=== PATIENT | male | born 1970 | race Caucasian/White ===

== ENCOUNTER 2019-05-13 23:49 | Emergency (ER) | payer MEDICARE, OTHER ==
[~2019-05-13] VITALS: Ht 180.3 cm; Wt 81.7 kg
[~2019-05-13 23:49] MED LIST: AMIT25 PO; Bactrim 400-801 EACH PO; Bactrim Ds Tab1 EACH PO; CEPH500 PO; Cleocin HCl150 MG PO; GABA100 PO; Keflex500 MG PO; METO50ER PO; PRAZ1 PO; QUET100 PO; Zofran Odt4 MG SL
== END 2019-05-14 05:25 | disposition home or self-care (01) ==
LOC: ER 23:49
DX: S02.2XXA Fracture of nasal bones, initial encounter for closed fracture (principal); Y04.8XXA Assault by other bodily force, initial encounter; F17.210 Nicotine dependence, cigarettes, uncomplicated
CPT/HCPCS: 70450; 70486; 99284-25; A9270

== ENCOUNTER 2019-05-21 09:02 | Day surgery (SDC) | payer MEDICARE ==
[~2019-05-21] VITALS: Ht 180.3 cm; Wt 83.9 kg
[2019-05-21] MEDS ORDERED: CEPH500 PO (09:54)
--- NOTE | 2019-05-21 11:32 | NUR ---
05/21/19 1132 NIYA VILLALBA VSS ON ROOM AIR. PATIENT DENIES PAIN/NAUSEA.
== END 2019-05-21 12:35 | disposition home or self-care (01) ==
LOC: ORSCSDS 09:02
PROVIDERS: Otolaryngology
PROC: 0NSBXZZ Reposition Nasal Bone, External Approach (ICD-10-PCS; principal; 2019-05-21 12:00)
DX: S02.2XXA Fracture of nasal bones, initial encounter for closed fracture (principal); Y04.2XXA Assault by strike against or bumped into by another person, initial encounter; F17.210 Nicotine dependence, cigarettes, uncomplicated; B19.20 Unspecified viral hepatitis C without hepatic coma
CPT/HCPCS: J1100; J1885; J2405; J2704; J3010; J7120

== ENCOUNTER 2019-08-02 18:49 | Emergency (ER) | payer MEDICARE ==
[2019-08-02] MEDS ORDERED: Narcan 0.40.4 MG/ML IM (20:54)
== END 2019-08-02 23:28 | disposition home or self-care (01) ==
DX: T40.1X1A Poisoning by heroin, accidental (unintentional), initial encounter (principal); F17.200 Nicotine dependence, unspecified, uncomplicated

== ENCOUNTER 2019-12-19 02:44 | Emergency (ER) | payer MEDICARE ==
[~2019-12-19] VITALS: Ht 180.3 cm; Wt 86.2 kg
[~2019-12-19 02:44] MED LIST changes: +NARCAN4 M1; +Narcan 0.40.4 MG/ML IM
== END 2019-12-19 05:37 | disposition home or self-care (01) ==
LOC: ER 02:44
DX: T40.1X1A Poisoning by heroin, accidental (unintentional), initial encounter (principal); F15.90 Other stimulant use, unspecified, uncomplicated; R40.4 Transient alteration of awareness; F17.210 Nicotine dependence, cigarettes, uncomplicated
CPT/HCPCS: 99284

== ENCOUNTER 2021-05-29 11:35 | Day surgery (SDC) | payer MEDICARE, OTHER ==
[~2021-05-29] VITALS: Ht 162.6 cm; Wt 93.2 kg
[2021-05-29] MEDS ORDERED: BUPR150ER PO (12:13)
[2021-05-29] MEDS ORDERED: QUET300 PO (12:14)
[2021-05-29] MEDS ORDERED: OMEP20ER PO (12:14)
[2021-05-29] MEDS ORDERED: METO50ER PO (12:14)
[2021-05-29] MEDS ORDERED: TAMS.4ER PO (12:15)
[2021-05-29] MEDS ORDERED: Pulmicort Fle180 MCG INH (12:15)
[2021-05-29] MEDS ORDERED: ALBU8HFA2 INH (12:15)
--- NOTE | 2021-05-29 14:39 | NUR ---
05/29/21 1439 DAISY ESPINOZA CALLED PT FRIEND LIA TO PICK HIM UP, NSC,RN LEFT MESSAGE. PT TAKEN TO STEPDOWN, SITTING IN RECLINER. DRINKING CRANBERRY JUICE. AMB W/O DIFFICULTY. PT CALLED FRIEND ON HIS CELL PHONE FOR FRIEND TO PICK HIM UP. DERICK AND NEERU AWARE PT IN STEPDOWN.
== END 2021-05-29 14:25 | disposition home or self-care (01) ==
LOC: ORSCSDS 11:35
PROVIDERS: Internal Medicine Gastroenterology
PROC: 0DB58ZX Excision of Esophagus, Via Natural or Artificial Opening Endoscopic, Diagnostic (ICD-10-PCS; principal; 2021-05-29 13:00)
PROC: 0DB68ZX Excision of Stomach, Via Natural or Artificial Opening Endoscopic, Diagnostic (ICD-10-PCS; principal; 2021-05-29 13:00)
PROC: 0DJD8ZZ Inspection of Lower Intestinal Tract, Via Natural or Artificial Opening Endoscopic (ICD-10-PCS; 2021-05-29 13:00)
DX: K21.9 Gastro-esophageal reflux disease without esophagitis (principal); Z12.11 Encounter for screening for malignant neoplasm of colon; B18.2 Chronic viral hepatitis C; K29.60 Other gastritis without bleeding; K44.9 Diaphragmatic hernia without obstruction or gangrene; I10 Essential (primary) hypertension; R00.0 Tachycardia, unspecified; Z87.891 Personal history of nicotine dependence; Z79.899 Other long term (current) drug therapy
CPT/HCPCS: 43239; G0121; 88305; 88342; J0330; J0461; J2405; J2704; J7120

== ENCOUNTER 2021-06-12 08:09 | Day surgery (SDC) | payer MEDICARE, OTHER ==
[~2021-06-12] VITALS: Ht 180.3 cm; Wt 93.8 kg
[~2021-06-12 08:09] MED LIST changes: +ALBU8HFA2 INH; +BUPR150ER PO; +OMEP20ER PO; +Pulmicort Fle180 MCG; +QUET300 PO; +TAMS.4ER PO
== END 2021-06-12 11:59 | disposition home or self-care (01) ==
LOC: ORSCSDS 08:09
PROVIDERS: Otolaryngology
PROC: 09SM0ZZ Reposition Nasal Septum, Open Approach (ICD-10-PCS; principal; 2021-06-12 09:55)
DX: J34.2 Deviated nasal septum (principal); J34.3 Hypertrophy of nasal turbinates; I10 Essential (primary) hypertension; J44.9 Chronic obstructive pulmonary disease, unspecified; F17.210 Nicotine dependence, cigarettes, uncomplicated; K21.9 Gastro-esophageal reflux disease without esophagitis; B19.20 Unspecified viral hepatitis C without hepatic coma; Z79.899 Other long term (current) drug therapy
CPT/HCPCS: J0171; J1100; J2250; J2405; J2704; J3010; J7120

== ENCOUNTER 2021-09-24 12:11 | Inpatient (IN) | payer MEDICARE, OTHER ==
[~2021-09-24] VITALS: Ht 180.3 cm; Wt 96.4 kg
[~2021-09-24 12:11] MED LIST changes: -Pulmicort Fle180 MCG; +Pulmicort Fle180 MCG INH
[2021-09-24 13:14] LABS: Albumin, Blood 3.5 g/dL (3.4-5.0); Albumin/Globulin Ratio 0.7 (0.8-1.8); Bilirubin, Total 1.1 mg/dL (0.1-1.0); Bun/Creatinine Ratio 35.6 (12.0-20.0); Calcium, Blood 9.8 mg/dL (8.5-10.1); Creatinine, Blood 1.35 mg/dL (0.60-1.20); Globulin, Blood 5.2 g/dL (2.2-4.0); Potassium, Blood 4.7 mmol/L (3.5-5.5); Total Protein, Blood 8.7 g/dL (6.4-8.2)
[2021-09-24 15:00] LABS: BASOPHILS ABSOLUTE AUTO 0.02 K/mm3 (0.00-0.23); BASOPHILS PERCENT AUTO 0 % (0-2); EOSINOPHILS ABSOLUTE AUTO 0.08 K/mm3 (0.00-0.68); EOSINOPHILS PERCENT AUTO 1 % (0-6); Hematocrit 43.5 % (37.0-53.0); Hemoglobin 15.8 g/dL (13.5-17.5); IMMATURE GRAN ABSOLUTE AUTO 0.06 K/mm3 (0.00-0.10); IMMATURE GRAN PERCENT AUTO 1 % (0-1); LYMPHOCYTES ABSOLUTE AUTO 0.97 K/mm3 (0.84-5.20); LYMPHOCYTES PERCENT AUTO 9 % (21-46); MONOCYTES ABSOLUTE AUTO 1.24 K/mm3 (0.16-1.47); MONOCYTES PERCENT AUTO 12 % (4-13); Mean Corpuscular HGB 30.9 pg (26.0-34.0); Mean Corpuscular HGB Conc 36.3 g/dL (31.5-36.5); Mean Corpuscular Volume 85 fL (80-100); Mean Platelet Volume 9.8 fL (9.1-12.4); NEUTROPHILS ABSOLUTE AUTO 8.39 K/mm3 (1.96-9.15); NEUTROPHILS PERCENT AUTO 78 % (41-73); Platelet Count 253 K/mm3 (150-400); RDW Coefficient Variation 12.8 % (11.7-14.2); RDW Standard Deviation 39.9 fL (35.1-46.3); Red Blood Cell Count 5.12 M/mm3 (4.30-5.90); White Blood Cell Count 10.76 K/mm3 (4.00-11.30)
[2021-09-24] MEDS ORDERED: Lopressor 50 mg50 MG PO (15:11)
[2021-09-24] MEDS ORDERED: QUET200 PO (15:12)
[2021-09-24] MEDS ORDERED: VENL75ER PO (15:13)
[2021-09-24 16:45] LABS: Influenza A, PCR NEGATIVE (NEGATIVE); Influenza B, PCR NEGATIVE (NEGATIVE); Resp Syncytial Virus, PCR NEGATIVE (NEGATIVE); SARS-Cov-2 (COVID-19) PCR, MMC NEGATIVE (NEGATIVE)
--- NOTE | 2021-09-24 20:42 | NUR ---
PT ARRIVAL PT ARRIVED TO THE FLOOR AT APPROX 2030, A/O X4 AND ABLE TO TRANSFER SELF FROM GURNY TO BED. PAIN RATED 3/10 AT THIS TIME. NO N/V REPORTED, BOWEL TONES ACTIVE. PT ORIENTED TO CALL LIGHT AND ROOM. WILL CONTINUE TO MONITOR.
[2021-09-24] MEDS ORDERED: TAMSULOSIN HCL0.4 M1 PO (21:49)
[2021-09-24] MEDS ORDERED: PRILOSEC OTC20 MG PO (21:50)
[2021-09-24] MEDS ORDERED: BUPROPION XL150 M1 PO (21:51)
[2021-09-24] MEDS ORDERED: [UNRECOGNIZED DRUG - CODE] PO (21:52)
[2021-09-24] MEDS ORDERED: VENLAFAXINE HC225 MG PO (21:53)
[2021-09-24] MEDS ORDERED: METOPROLOL TART50 M9 PO (21:55)
[2021-09-24] MEDS ORDERED: Pulmicort Flex90 MCG INH (21:55)
[2021-09-24] MEDS ORDERED: Ventolin/Prove6.7 GM INH (21:56)
--- NOTE | 2021-09-24 22:29 | NUR ---
CALL PLACED TO HOSPITALIST AT APPROX 2215 ABOUT PT BP AND HR, WELL PT REPORT OF NEEDING HIS DAILY SEROQUEL. AT THIS TIME MD STATED TO LEAVE HR AND BP ALONE AND TO ORDER 2.5MG HALDOL IV IN PLACE OF SEROQUEL AND TO VERIFY SEROQUEL ORDER WITH PT'S PHARMACY TOMORROW WHEN THEY ARE OPEN. WILL CONTINUE TO MONITOR.
[2021-09-24 23:54] LABS: U Amphetamine Screen Not Detected; U Barbituate Screen Not Detected; U Benzodiazapine Screen Not Detected; U Buprenorphine Screen Not Detected; U Cannabinoids Screen Not Detected; U Cocaine Screen Not Detected; U Methadone Screen Not Detected; U Methamphetamine Screen Not Detected; U Opiates Screen DETECTED; U Oxycodone Screen Not Detected; U Phencyclidine Screen Not Detected; U Propoxyphene Screen Not Detected
[2021-09-25 05:11] LABS: BASOPHILS ABSOLUTE AUTO 0.02 K/mm3 (0.00-0.23); BASOPHILS PERCENT AUTO 0 % (0-2); EOSINOPHILS ABSOLUTE AUTO 0.13 K/mm3 (0.00-0.68); EOSINOPHILS PERCENT AUTO 1 % (0-6); Hemoglobin 14.5 g/dL (13.5-17.5); IMMATURE GRAN ABSOLUTE AUTO 0.09 K/mm3 (0.00-0.10); IMMATURE GRAN PERCENT AUTO 1 % (0-1); LYMPHOCYTES ABSOLUTE AUTO 1.21 K/mm3 (0.84-5.20); LYMPHOCYTES PERCENT AUTO 12 % (21-46); MONOCYTES ABSOLUTE AUTO 1.32 K/mm3 (0.16-1.47); MONOCYTES PERCENT AUTO 13 % (4-13); Mean Corpuscular HGB 30.8 pg (26.0-34.0); Mean Corpuscular HGB Conc 35.4 g/dL (31.5-36.5); Mean Corpuscular Volume 87 fL (80-100); Mean Platelet Volume 9.3 fL (9.1-12.4); NEUTROPHILS ABSOLUTE AUTO 7.16 K/mm3 (1.96-9.15); NEUTROPHILS PERCENT AUTO 72 % (41-73); Platelet Count 250 K/mm3 (150-400); RDW Coefficient Variation 12.9 % (11.7-14.2); RDW Standard Deviation 41.1 fL (35.1-46.3); Red Blood Cell Count 4.71 M/mm3 (4.30-5.90); White Blood Cell Count 9.93 K/mm3 (4.00-11.30)
--- NOTE | 2021-09-25 05:11 | NUR ---
SHIFT SUMMARY A/O X4- PLEASANT AND COOPERATIVE W/ CARE, IND IN ROOM. NO N/V REPORTED, PAIN TREATED W/ IV PAIN MEDICATION. VOIDING AND PASSED SMALL AMOUNT OF LIQUID STOOL X1 THIS SHIFT. NPO AT THIS TIME. VITAL SIGNS TRENDING IN THE RIGHT DIRECTION, PT REPORTS HTN AND TACHYCARDIA AT BASELINE. WILL CONTINUE TO MONITOR AND REPORT TO ONCOMING RN.
[2021-09-25 05:24] LABS: Prothrombin Time Results 10.5 Sec (9.7-11.5)
[2021-09-25 05:38] LABS: Albumin/Globulin Ratio 0.7 (0.8-1.8); Bilirubin, Total 1.3 mg/dL (0.1-1.0); Bun/Creatinine Ratio 31.2 (12.0-20.0); Calcium, Blood 8.9 mg/dL (8.5-10.1); Globulin, Blood 4.6 g/dL (2.2-4.0); Magnesium, Blood 2.3 mg/dL (1.6-2.4); Potassium, Blood 3.9 mmol/L (3.5-5.5); Total Protein, Blood 7.6 g/dL (6.4-8.2)
--- NOTE | 2021-09-25 12:37 | NUR ---
ASSUMED CARE OF PATIENT. PATIENT CURRENTLY RESTING IN SHELLY, DENIES ABDOMINAL PAIN, DENIES N/V. CALL LIGHT IN REACH.
--- NOTE | 2021-09-25 12:39 | NUR ---
VERIFIED PATIENTS HOME DOSE OF SEROQUEL AND UPDATED MED REC. [facility] STATES PATIENTS PRESCRIPTION IS FOR 400MG AT BEDTIME.
--- NOTE | 2021-09-25 17:05 | NUR ---
SHIFT SUMMARY NO ACUTE CHANGES SINCE ASSUMPTION OF CARE. PATIENT INDEPENDENT IN ROOM, AMBULATED HALLWAYS. 1 SMALL BM FOR THIS RN, LOOSE, NO OBJECTS PRESENT. NPO W/ ICE CHIPS. PAIN MANAGED PER EMAR, DENIES N/V. CALLS APPROPRIATELY, WILL REPORT TO ONCOMING RN.
[2021-09-26 05:00] LABS: BASOPHILS ABSOLUTE AUTO 0.03 K/mm3 (0.00-0.23); BASOPHILS PERCENT AUTO 0 % (0-2); EOSINOPHILS ABSOLUTE AUTO 0.15 K/mm3 (0.00-0.68); EOSINOPHILS PERCENT AUTO 2 % (0-6); Hematocrit 38.1 % (37.0-53.0); IMMATURE GRAN ABSOLUTE AUTO 0.16 K/mm3 (0.00-0.10); IMMATURE GRAN PERCENT AUTO 2 % (0-1); LYMPHOCYTES ABSOLUTE AUTO 1.31 K/mm3 (0.84-5.20); LYMPHOCYTES PERCENT AUTO 15 % (21-46); MONOCYTES ABSOLUTE AUTO 1.33 K/mm3 (0.16-1.47); MONOCYTES PERCENT AUTO 15 % (4-13); Mean Corpuscular HGB 30.7 pg (26.0-34.0); Mean Corpuscular HGB Conc 34.1 g/dL (31.5-36.5); Mean Corpuscular Volume 90 fL (80-100); Mean Platelet Volume 9.4 fL (9.1-12.4); NEUTROPHILS ABSOLUTE AUTO 5.84 K/mm3 (1.96-9.15); NEUTROPHILS PERCENT AUTO 66 % (41-73); Platelet Count 237 K/mm3 (150-400); RDW Coefficient Variation 12.9 % (11.7-14.2); RDW Standard Deviation 42.1 fL (35.1-46.3); Red Blood Cell Count 4.24 M/mm3 (4.30-5.90); White Blood Cell Count 8.82 K/mm3 (4.00-11.30)
[2021-09-26 05:19] LABS: Bun/Creatinine Ratio 25.4 (12.0-20.0); Calcium, Blood 8.7 mg/dL (8.5-10.1); Creatinine, Blood 0.83 mg/dL (0.60-1.20); Potassium, Blood 3.9 mmol/L (3.5-5.5)
--- NOTE | 2021-09-26 06:08 | NUR ---
PT VSS T/O NIGHT. ABD REMAINS DISTENDED, BT ACTIVE, PT HAD 2 LIQ BM. STOOL BROWN, PT PASSED WHAT APPEARED TO BE A WHOLE BLUEBERRY. NO OTHER SOLID SUBSTANCES/ITEMS NOTED. PT DENIED PAIN W/VOID, DENIED N/V. PT VOIDING URINE W/O DIFFICULTY. PAIN MGD PER EMAR W/REP RELIEF. PT NPO PER ORDERS. IVF AND ABX CONT.
--- NOTE | 2021-09-26 19:33 | NUR ---
SHIFT SUMMARY PT HAS CONTINUED TO HAVE FREQUENT LIQUID BM'S T/O SHIFT. TONIGHT PT HAD WHAT APPEARED TO BE TWO HARD PILLS SLIGHTLY SMALLER THAN A DIME PRESENT IN BM. PT DENIES ANY INCREASE PAIN. NO N/V. PT AMBULATING HALLWAYS FREQUENTLY.
--- NOTE | 2021-09-27 04:32 | NUR ---
SHIFT SUMMARY NO ACUTE CHANGES THIS SHIFT. 50MCG IV FENTANYL FOR ABD PAIN PRN. PT PASSING FLATUS AND HAVING LIQUID STOOL. CONT TO STRAIN STOOL--NOTHING NOTED THIS SHIFT. PT INDEP WITH AMBULATION. PT NPO AND IVF INFUSING PER ORDERS. CALL LIGHT WITHIN REACH.
[2021-09-27 05:51] LABS: Bun/Creatinine Ratio 25.7 (12.0-20.0); Calcium, Blood 8.6 mg/dL (8.5-10.1); Creatinine, Blood 0.74 mg/dL (0.60-1.20); Potassium, Blood 3.7 mmol/L (3.5-5.5)
--- NOTE | 2021-09-27 16:12 | NUR ---
SUMMARY: PT ADMITTED FOR SOB. NO ACUTE CHANGE TODAY. VSS, A/O. PT INDEPENDENT IN ROOM AND TAKES FREQUENT WALKS IN HALLS. ABD IS MOD DISTENDED. PT REPORTS PASSING GAS AND IS HAVING LIQUID BM'S. DENIES N/V. MEDICATED ABOUT Q3 WITH 50MCG OF FENTANYAL. NO SAFETY CONCERNS, WILL REPORT TO MERYL ORTIZ.
[2021-09-28 06:10] LABS: Hematocrit 36.9 % (37.0-53.0); Hemoglobin 12.8 g/dL (13.5-17.5); Mean Corpuscular HGB 30.5 pg (26.0-34.0); Mean Corpuscular HGB Conc 34.7 g/dL (31.5-36.5); Mean Corpuscular Volume 88 fL (80-100); Mean Platelet Volume 9.5 fL (9.1-12.4); Platelet Count 320 K/mm3 (150-400); RDW Coefficient Variation 12.4 % (11.7-14.2); Red Blood Cell Count 4.19 M/mm3 (4.30-5.90); White Blood Cell Count 8.49 K/mm3 (4.00-11.30)
[2021-09-28 06:30] LABS: Albumin, Blood 2.7 g/dL (3.4-5.0); Albumin/Globulin Ratio 0.7 (0.8-1.8); Bilirubin, Total 0.7 mg/dL (0.1-1.0); Bun/Creatinine Ratio 22.5 (12.0-20.0); Calcium, Blood 8.5 mg/dL (8.5-10.1); Creatinine, Blood 0.67 mg/dL (0.60-1.20); Globulin, Blood 4.1 g/dL (2.2-4.0); Potassium, Blood 3.4 mmol/L (3.5-5.5); Total Protein, Blood 6.8 g/dL (6.4-8.2)
--- NOTE | 2021-09-28 08:11 | NUR ---
SUMMARY PT CONTINUES TO REQUIRE FENTANYL FOR PAIN CONTROL. SLEEPS BETWEEN DOSES. 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 ADMIT HAD 400 MG -I CHANGED ADMIT AND DAY RN AGREES TO FOLLOW UP WITH REGARDING THIS. STOOL CONTINUES LIQUID-DID NOT STRAIN ANYTHING WITH APPEARANCE OF FOREIGN OBJECT TONIGHT. SAMPLES FROM THIS SHIFT AND DAY SHIFT IN SAMPLE CUPS IN ROOM.FLATUS+
[2021-09-28 08:13] LABS: BASOPHILS PERCENT MAN 0 % (0-2); EOSINOPHILS PERCENT MAN 0 % (0-6); LYMPHOCYTES % ATYPICAL MANUAL 1 % (0-0); LYMPHOCYTES ABSOLUTE MAN 2.97 K/mm3 (0.84-5.20); LYMPHOCYTES PERCENT MAN 34 % (21-46); MONOCYTES PERCENT MAN 6 % (4-13); MYELOCYTE ABSOLUTE MAN 0.16 K/mm3 (0.00-0.00); MYELOCYTE PERCENT MAN 2 % (0-0); NEUTROPHILS ABSOLUTE MAN 4.83 K/mm3 (1.96-9.15); SEG NEUTROPHILS PERCENT MAN 57 % (41-73); TOTAL CELLS COUNTED 100
--- NOTE | 2021-09-28 17:07 | NUR ---
SUMMARY NO ACUTE CHANGES T/O SHIFT. PT ADVANCED TO CLEAR LIQUID DIET; TOLERATING WELL. REPORTS CONTINUING TO HAVE LOOSE BMS. INDEPENDENT. AMBULATED OUT OF UNIT THIS SHIFT. CALL LIGHT KEPT WITHIN REACH.
--- NOTE | 2021-09-28 23:46 | NUR ---
1043 ASSUMED CARE. REPORT RECIEVED FROM CHUCHO ORTIZ
[2021-09-29 04:06] LABS: Hematocrit 36.4 % (37.0-53.0); Hemoglobin 12.9 g/dL (13.5-17.5)
[2021-09-29 04:27] LABS: Albumin, Blood 2.7 g/dL (3.4-5.0); Albumin/Globulin Ratio 0.7 (0.8-1.8); Bilirubin, Total 0.6 mg/dL (0.1-1.0); Bun/Creatinine Ratio 12.9 (12.0-20.0); Calcium, Blood 8.3 mg/dL (8.5-10.1); Creatinine, Blood 0.7 mg/dL (0.60-1.20); Globulin, Blood 3.8 g/dL (2.2-4.0); Potassium, Blood 3.4 mmol/L (3.5-5.5); Total Protein, Blood 6.5 g/dL (6.4-8.2)
--- NOTE | 2021-09-29 04:40 | NUR ---
SHIFT SUMMARY PT REPORTS MINIMAL TO NO PAIN AT REST BUT REPORTS 4/10 PAIN LEVEL WITH MOVEMENT/WALKING. PAIN MANAGED WITH TORADOL AND NORCO. FULL LIQ DIET, TOLERATING PO INTAKE DENIES NAUSEA AND VOMITING. INDEPENDENT IN ROOM. WALKS IN THE BATHROOM TO VOID. VOIDING WITHOUT DIFFICULTY. NO ACUTE CHANGES OVERNIGHT. WILL CONTINUE TO MONITOR AND WILL PROVIDE REPORT TO ONCOMING NURSE.
[2021-09-29] MEDS ORDERED: AMOCLA875 PO (10:56)
[2021-09-29] MEDS ORDERED: VISBIOME 112.51 EACH PO (10:57)
[2021-09-29] MEDS ORDERED: HYDR1TAB94 PO (11:05)
--- NOTE | 2021-09-29 11:41 | NUR ---
DISCHARGE SUMMARY PATIENT ALERT AND ORIENTED THROUGHOUT SHIFT. TOLERATING FULL LIQUID DIET AND FLUIDS. VOIDING WELL AND PASSING GAS AND SMALL BMS. ABD DISTENDED AND TIGHT ALTHOUGH PATIENT AND DR BURGOS BOTH STATE IT IS IMPROVED. DISCHARGE ORDERS OBTAINED. DISCHARGE EDUCATION GIVEN ON DIET, PAIN CONTROL, AND FOLLOW UP APPTS. IV DC'D WNL. PATIENT LEFT UNIT VIA WHEELCHAIR AT 1140 FOR HOME.
== END 2021-09-29 11:33 | disposition home or self-care (01) | DRG 389 ==
LOC: ER 12:11 → SURS 18:57
PROVIDERS: Emergency Medicine; Family Medicine; Internal Medicine; Nurse Practitioner Acute Care; Physician Assistant; ADMIT Hospitalist
DX: K56.609 Unspecified intestinal obstruction, unspecified as to partial versus complete obstruction (principal); L02.211 Cutaneous abscess of abdominal wall; N40.0 Benign prostatic hyperplasia without lower urinary tract symptoms; I10 Essential (primary) hypertension; J45.909 Unspecified asthma, uncomplicated; B19.20 Unspecified viral hepatitis C without hepatic coma; K21.9 Gastro-esophageal reflux disease without esophagitis; F41.9 Anxiety disorder, unspecified; K22.70 Barrett's esophagus without dysplasia; Z20.822 Contact with and (suspected) exposure to COVID-19; Z90.49 Acquired absence of other specified parts of digestive tract; Z90.89 Acquired absence of other organs; Z79.899 Other long term (current) drug therapy
CPT/HCPCS: 0241U; 36415; 74019; 74176; 80048; 80053; 83605; 83690; 83735; 85014; 85018; 85025; 85610; 86140; 87040; 93005; 93010; 94640; 94664; 94760; 94762; 96365; 96366; 96375; 96376; 99285-25; A9270; C9113; J0295; J1170; J1630; J2405; J3010; J7030; J7120

== ENCOUNTER 2021-12-17 11:52 | Inpatient (IN) | payer MEDICARE, OTHER ==
[~2021-12-17] VITALS: Ht 180.3 cm; Wt 98.0 kg
[~2021-12-17 11:52] MED LIST changes: +AMOCLA875 PO; +BUPROPION XL150 M1 PO; +HYDR1TAB94 PO; +Lopressor 50 mg50 MG PO; +METOPROLOL TART50 M9 PO; +PRILOSEC OTC20 MG PO; +Pulmicort Flex90 MCG INH; +QUET200 PO; +TAMSULOSIN HCL0.4 M1 PO; +VENL75ER PO; +VENLAFAXINE HC225 MG PO; +VISBIOME 112.51 EACH PO; +Ventolin/Prove6.7 GM INH; +[UNRECOGNIZED DRUG - CODE] PO
[2021-12-17 12:49] LABS: Source, Urine Clean Catch
[2021-12-17 12:52] LABS: BASOPHILS ABSOLUTE AUTO 0.01 K/mm3 (0.00-0.23); BASOPHILS PERCENT AUTO 0 % (0-2); EOSINOPHILS ABSOLUTE AUTO 0.01 K/mm3 (0.00-0.68); EOSINOPHILS PERCENT AUTO 0 % (0-6); Hematocrit 45.1 % (37.0-53.0); Hemoglobin 16.1 g/dL (13.5-17.5); IMMATURE GRAN ABSOLUTE AUTO 0.03 K/mm3 (0.00-0.10); IMMATURE GRAN PERCENT AUTO 0 % (0-1); LYMPHOCYTES PERCENT AUTO 7 % (21-46); MONOCYTES ABSOLUTE AUTO 0.89 K/mm3 (0.16-1.47); MONOCYTES PERCENT AUTO 8 % (4-13); Mean Corpuscular HGB 30.9 pg (26.0-34.0); Mean Corpuscular HGB Conc 35.7 g/dL (31.5-36.5); Mean Corpuscular Volume 87 fL (80-100); Mean Platelet Volume 10.6 fL (9.1-12.4); NEUTROPHILS ABSOLUTE AUTO 9.39 K/mm3 (1.96-9.15); NEUTROPHILS PERCENT AUTO 84 % (41-73); Platelet Count 151 K/mm3 (150-400); RDW Coefficient Variation 12.8 % (11.7-14.2); RDW Standard Deviation 39.9 fL (35.1-46.3); Red Blood Cell Count 5.21 M/mm3 (4.30-5.90); White Blood Cell Count 11.13 K/mm3 (4.00-11.30)
[2021-12-17 13:00] LABS: Appearance, Urine Clear (Clear); Bilirubin, Urine Neg (Neg); Blood, Urine Neg (Neg); Color, Urine Yellow (P-Yellow); Glucose Qualitative, Urine Neg (Neg); Ketones, Urine Neg (Neg); Leukocyte Esterase, Urine Neg (Neg); Nitrite, Urine Neg (Neg); Protein, Urine Neg (Neg); Urobilinogen, Urine NORM (Normal)
[2021-12-17 13:12] LABS: Albumin, Blood 4.2 g/dL (3.4-5.0); Albumin/Globulin Ratio 1.1 (0.8-1.8); Bilirubin, Total 1.1 mg/dL (0.1-1.0); Bun/Creatinine Ratio 12.3 (12.0-20.0); Calcium, Blood 8.7 mg/dL (8.5-10.1); Creatinine, Blood 0.89 mg/dL (0.60-1.20); Globulin, Blood 3.9 g/dL (2.2-4.0); Potassium, Blood 4.1 mmol/L (3.5-5.5); Total Protein, Blood 8.1 g/dL (6.4-8.2)
[2021-12-17 16:07] LABS: Influenza A, PCR NEGATIVE (NEGATIVE); Influenza B, PCR NEGATIVE (NEGATIVE); Resp Syncytial Virus, PCR NEGATIVE (NEGATIVE); SARS-Cov-2 (COVID-19) PCR, MMC NEGATIVE (NEGATIVE)
[2021-12-17] MEDS ORDERED: MONT10T PO (16:37)
[2021-12-17] MEDS ORDERED: Pulmicort Flex90 MCG INH (16:38)
[2021-12-17] MEDS ORDERED: GABA300 PO (16:39)
--- NOTE | 2021-12-17 18:31 | NUR ---
SUMMARY PT HAS BEEN RESTING IN BED SINCE ARRIVED TO UNIT, DENIES ANY NAUSEA, INDEPENDENT TO THE BATHROOM, CURRENTLY C/O ABD PAIN 09/24, STATES PAIN IS "ALL OVER ABD" AND DIFFICULT TO DESCRIBE, 1MG IV DILAUDID GIVEN, NO OTHER CHANGES THIS SHIFT.
--- NOTE | 2021-12-18 03:58 | NUR ---
VSS. PT HAS BEEN NPO SINCE 0000 IN PREPERATION FOR SURGERY TODAY. THE PATIENT HAS SLEPT ON AND OFF T/O THE SHIFT. ABD PAIN HAS BEEN MANAGED WITH TYLENOL AND DILAUDID. MEDICATED FOR NAUSEA ONCE, NO EMESIS. PT HAS REMAINED INDEPENDENT T/O THE NIGHT, VOIDING W/O DIFFICULTY AND PASSING SOME FLATTUS. NO BM'S. SURGICAL WASHDOWN COMPLETE. AWAITING FURTHER ORDERS THIS AM FOR SURGERY. PT IS CURRENTLY SLEEPING, IN NO DISTRESS, CALL LIGHT IN REACH.
[2021-12-18 06:17] LABS: BASOPHILS ABSOLUTE AUTO 0.02 K/mm3 (0.00-0.23); BASOPHILS PERCENT AUTO 0 % (0-2); EOSINOPHILS ABSOLUTE AUTO 0.01 K/mm3 (0.00-0.68); EOSINOPHILS PERCENT AUTO 0 % (0-6); Hematocrit 41.4 % (37.0-53.0); Hemoglobin 14.3 g/dL (13.5-17.5); IMMATURE GRAN ABSOLUTE AUTO 0.03 K/mm3 (0.00-0.10); IMMATURE GRAN PERCENT AUTO 0 % (0-1); LYMPHOCYTES ABSOLUTE AUTO 0.99 K/mm3 (0.84-5.20); LYMPHOCYTES PERCENT AUTO 10 % (21-46); MONOCYTES ABSOLUTE AUTO 0.99 K/mm3 (0.16-1.47); MONOCYTES PERCENT AUTO 10 % (4-13); Mean Corpuscular HGB 30.6 pg (26.0-34.0); Mean Corpuscular HGB Conc 34.5 g/dL (31.5-36.5); Mean Corpuscular Volume 89 fL (80-100); Mean Platelet Volume 10.4 fL (9.1-12.4); NEUTROPHILS ABSOLUTE AUTO 8.36 K/mm3 (1.96-9.15); NEUTROPHILS PERCENT AUTO 80 % (41-73); Platelet Count 144 K/mm3 (150-400); RDW Coefficient Variation 13.2 % (11.7-14.2); RDW Standard Deviation 42.7 fL (35.1-46.3); Red Blood Cell Count 4.67 M/mm3 (4.30-5.90)
[2021-12-18 06:39] LABS: Bun/Creatinine Ratio 15.9 (12.0-20.0); Creatinine, Blood 0.88 mg/dL (0.60-1.20); Potassium, Blood 3.7 mmol/L (3.5-5.5)
--- NOTE | 2021-12-18 10:45 | NUR ---
PT TO SDS VIA GURNEY. Patient confirms NPO status and agrees with scheduled surgery. Lungs clear T/O to Auscultation. Patient reports completing Chlorhexadine scrubs prior to transfer to Day Surgery. Pre-Op teaching done. Pt verbalizes understanding. Patient diaphoretic & febrile, physicians notified. Cool washcloth placed on forehead. Patient resting in gurney, denies needs at this time. Call light within reach.
--- NOTE | 2021-12-18 15:04 | NUR ---
PT ARRIVED BACK TO UNIT FROM PACU AT APROX 1430. PT ROUSES EASILY TO VERBAL STIMULI. PT DIAPHORETIC UPON ARRIVAL, GOWN DAMP AND PILLOW WITH BROWNISH/COFFEE GROUND APPEARING RESIDUE BEHIND HEAD-SPOKE WITH DYE WEIGHER HELPER AND PT DID HAVE AN EPISODE OF EMESIS IN OR. AFEBRILE ON ARRIVAL TO UNIT USING ORAL THERMOMETER. PT REPORTS 10/10 PAIN, MEDICATED WITH 1MG DILAUDID. C/O N/V TREATED WITH 4MG ZOFRAN. ORDER FOR LR 75/HR FROM DR BEY-MAY SALINE LOCK WHEN TOLERATING PO. PT DOES NOT APPEAR TO BE IN ANY DISTRESS AT THIS TIME. POST-OP VSS.
--- NOTE | 2021-12-18 17:01 | NUR ---
SHIFT SUMMARY PT POD 0 LAP CONVERTED TO OPEN APPY. MIDLINE INCISION WITH [employer] DRESSING WITH DIME SIZE AMOUNT OF DRAINAGE PRESENT AT BOTTOM OF DRESSING, FOAM COMPRESSED. . LAP SITE TO LLQ COVERED WITH BANDAID C/D/I. PT POST OF VSS SINCE ARRIVAL TO UNIT. PAIN REPORTED /10 AT THIS TIME, MEDICATED WITH 10MG ROXICODONE AND 650MG TYLENOL. PT TOLERATING SMALL AMT CLEAR LIQUIDS. LR RUNNING AT 75ML/HR. NO C/O NAUSEA AT THIS TIME. CONTINUE IV ABX.
[2021-12-18 19:06] LABS: Hematocrit 39.7 % (37.0-53.0); Hemoglobin 14.2 g/dL (13.5-17.5); Mean Corpuscular HGB 31.1 pg (26.0-34.0); Mean Corpuscular HGB Conc 35.8 g/dL (31.5-36.5); Mean Corpuscular Volume 87 fL (80-100); Mean Platelet Volume 10.2 fL (9.1-12.4); Platelet Count 151 K/mm3 (150-400); RDW Coefficient Variation 13.2 % (11.7-14.2); RDW Standard Deviation 42.1 fL (35.1-46.3); Red Blood Cell Count 4.57 M/mm3 (4.30-5.90); White Blood Cell Count 7.86 K/mm3 (4.00-11.30)
--- NOTE | 2021-12-18 22:12 | NUR ---
HEART RATE PT NOTED TO HAVE INCREASING HR T/O THE SHIFT AFTER EVENING DOSE OF LOPRESSOR, PT DENIES CP OR PRESSURE. NOTED TO BE PALE AND DIAPHORETIC, OTHER VSS. CALLED PLACED TO DR. BEY, SPOKE ABOUT HR, VITALS, ABD ASSESSMENT, AND CURRENT MEDICATIONS. NEW ORDERS RECIEVED, WILL CONTINUE TO MONITOR AND UPDATE DR FOR ADDITIONAL CONCERNS.
[2021-12-19 00:02] LABS: BASOPHILS ABSOLUTE AUTO 0.01 K/mm3 (0.00-0.23); BASOPHILS PERCENT AUTO 0 % (0-2); EOSINOPHILS PERCENT AUTO 0 % (0-6); Hematocrit 37.9 % (37.0-53.0); Hemoglobin 13.4 g/dL (13.5-17.5); IMMATURE GRAN ABSOLUTE AUTO 0.02 K/mm3 (0.00-0.10); IMMATURE GRAN PERCENT AUTO 0 % (0-1); LYMPHOCYTES ABSOLUTE AUTO 0.85 K/mm3 (0.84-5.20); LYMPHOCYTES PERCENT AUTO 13 % (21-46); MONOCYTES ABSOLUTE AUTO 0.61 K/mm3 (0.16-1.47); MONOCYTES PERCENT AUTO 9 % (4-13); Mean Corpuscular HGB 31.1 pg (26.0-34.0); Mean Corpuscular HGB Conc 35.4 g/dL (31.5-36.5); Mean Corpuscular Volume 88 fL (80-100); Mean Platelet Volume 10.2 fL (9.1-12.4); NEUTROPHILS ABSOLUTE AUTO 5.16 K/mm3 (1.96-9.15); NEUTROPHILS PERCENT AUTO 78 % (41-73); Platelet Count 153 K/mm3 (150-400); RDW Coefficient Variation 13.2 % (11.7-14.2); RDW Standard Deviation 42.9 fL (35.1-46.3); Red Blood Cell Count 4.31 M/mm3 (4.30-5.90); White Blood Cell Count 6.65 K/mm3 (4.00-11.30)
--- NOTE | 2021-12-19 00:07 | NUR ---
LABS MULTIPLE TECHS ATTEMPTED TO DRAW LABS ON THE PT WITH FAILED ATTEMPTS, DUE TO FAILED DRAWS PCU WAS CALLED AND JONATHON ORTIZ CAME TO ATTEMPT TO PLACE A POWER GLIDE
--- NOTE | 2021-12-19 00:47 | NUR ---
CRITICAL LAB CRITICAL LAB CALLED AT 1240 FOR A LACTIC OF 3, DR BEY NOTIFIED. NEW ORDERS OBTAINED FOR FLUID AND AN NG TUBE. WILL CONTINUE TO MONITOR AND UPDATE DR WITH FURTHER CHANGES.
--- NOTE | 2021-12-19 01:43 | NUR ---
NG TUB NG TUBE PLACED PER DR BEY ORDER. IMMEDIATE RETURN NOTED, DARK BILLIOUS FLUID NOTED, PT TOLLERATED WELL. PT EXPRESSED IMMEDIATE RELIEF. WILL CONTINUE TO MONITOR CLOSELY
[2021-12-19 04:48] LABS: Hematocrit 38.7 % (37.0-53.0); Hemoglobin 13.2 g/dL (13.5-17.5); Mean Corpuscular HGB 30.6 pg (26.0-34.0); Mean Corpuscular HGB Conc 34.1 g/dL (31.5-36.5); Mean Corpuscular Volume 90 fL (80-100); Mean Platelet Volume 10.5 fL (9.1-12.4); Platelet Count 156 K/mm3 (150-400); RDW Coefficient Variation 13.2 % (11.7-14.2); RDW Standard Deviation 43.7 fL (35.1-46.3); Red Blood Cell Count 4.31 M/mm3 (4.30-5.90); White Blood Cell Count 7.02 K/mm3 (4.00-11.30)
--- NOTE | 2021-12-19 05:09 | NUR ---
DR UPDATE DR BEY UPDATED ON PTS HR TREND, I/O, LACTIC, AND URINARY RETENTION. PT VITALS STATUS REVIEWED WITH MD. PLAN TO PLACE BIRD AND NEW ORDER FOR SCHEDULED LOPRESSOR. WILL NOTIFY MD FOR FURTHER CONCERNS.
--- NOTE | 2021-12-19 05:11 | NUR ---
POD1 FOR OPEN APPY. PT HR TRENDED TACHY 120 T/O THE NIGHT, REMAINED ASYMPOTOMATIC. NOTED BRIEF IMPROVEMENT AFTER BRIEF LOPRESSOR GIVEN. NG TUBE PATENT WITH APPROX 600 MLS OF DARK BILE OUTPUT, PATINT TOLLERATING WELL. PT REPORTS DECREASED "BLOATING" , ABD FEEL SOFTER UPON PALPATION. PLAN TO PLACE BIRD FOR RETENTION PT HAS HAD MULTIPLE FAILED ATTEMPTS AT VOIDING. POWER GLIDE PLACED IN RUE THIS SHIFT. IV FLUIDS CONTINUE PER MAR. PT DENIES N/V. NO FLATTUS. NO NEW DRAINAGE NOTED ON PARI DRESSING. PAIN MANAGED PER EMAR. DR BEY UPDATED T/O THE NIGHT. SEE PREVIOUS NOTES.
[2021-12-19 05:16] LABS: Bun/Creatinine Ratio 18.1 (12.0-20.0); Calcium, Blood 7.9 mg/dL (8.5-10.1); Creatinine, Blood 1.16 mg/dL (0.60-1.20); Potassium, Blood 3.8 mmol/L (3.5-5.5)
[2021-12-19 07:07] LABS: Magnesium, Blood 1.6 mg/dL (1.6-2.4); Phosphorus, Blood 1.8 mg/dL (2.5-4.9)
--- NOTE | 2021-12-19 09:10 | NUR ---
PT STARTED ON DILAUDID CAPTAIN CANNERY TENDER PER EMAR. PT REPORTS PAIN IS MUCH BETTER CONTROLED AT THIS TIME. WILL CONTINUE IV TORADOL WELL.
--- NOTE | 2021-12-19 12:48 | NUR ---
12/19/21 1248 Alicia Grimes VERIFICATIONS: EDIT CHART.
[2021-12-19 14:14] LABS: Bun/Creatinine Ratio 18.1 (12.0-20.0); Calcium, Blood 8.2 mg/dL (8.5-10.1); Creatinine, Blood 1.05 mg/dL (0.60-1.20); Potassium, Blood 3.7 mmol/L (3.5-5.5)
--- NOTE | 2021-12-19 18:15 | NUR ---
SHIFT SUMMARY PT POD 0 LAP CONVERTED TO OPEN APPY. MIDLINE INCISION W/[employer] DRESSING-FOAM COMPRESSED. NO INCREASED DRAINAGE T/O SHIFT. BANDAID TO [facility] C/D/I. NG IN PLACE-DRAINING BROWN LIQUID. NO N/V T/O SHIFT. ABD MOD DISTENDED. PAIN MANAGED WELL WITH DILAUDID LATHER APPRENTICE. PT UP TO CHAIR T/O ENTIRE SHIFT. USING INCENTIVE SPIROMETER WITH MOST COMMERICAL BREAKS T/O SHIFT. CONTINUE IVF AND IV ABX.
[2021-12-20 04:38] LABS: BASOPHILS ABSOLUTE AUTO 0.01 K/mm3 (0.00-0.23); BASOPHILS PERCENT AUTO 0 % (0-2); EOSINOPHILS ABSOLUTE AUTO 0.14 K/mm3 (0.00-0.68); EOSINOPHILS PERCENT AUTO 3 % (0-6); Hematocrit 28.8 % (37.0-53.0); Hemoglobin 10.2 g/dL (13.5-17.5); IMMATURE GRAN ABSOLUTE AUTO 0.02 K/mm3 (0.00-0.10); IMMATURE GRAN PERCENT AUTO 0 % (0-1); LYMPHOCYTES ABSOLUTE AUTO 1.01 K/mm3 (0.84-5.20); LYMPHOCYTES PERCENT AUTO 18 % (21-46); MONOCYTES ABSOLUTE AUTO 0.56 K/mm3 (0.16-1.47); MONOCYTES PERCENT AUTO 10 % (4-13); Mean Corpuscular HGB 31.2 pg (26.0-34.0); Mean Corpuscular HGB Conc 35.4 g/dL (31.5-36.5); Mean Corpuscular Volume 88 fL (80-100); Mean Platelet Volume 10.6 fL (9.1-12.4); NEUTROPHILS ABSOLUTE AUTO 3.93 K/mm3 (1.96-9.15); NEUTROPHILS PERCENT AUTO 69 % (41-73); Platelet Count 143 K/mm3 (150-400); RDW Coefficient Variation 13.2 % (11.7-14.2); RDW Standard Deviation 42.8 fL (35.1-46.3); Red Blood Cell Count 3.27 M/mm3 (4.30-5.90); White Blood Cell Count 5.67 K/mm3 (4.00-11.30)
--- NOTE | 2021-12-20 04:38 | NUR ---
POD2 FOR AN OPEN APPENDECTOMY. MIDLINE PARI REMAINS COMPRESSED, MILD DRAINAGE NOTED ON DRESSING. VSS, HR NOTED TO BE TACHYCARDIC PER TREND. PT REMAINS ASYMPTOMATIC, PLAN TO MEDICATE WITH LOPRESSOR PER EMAR. TELE IN PLACE. NO ACUTE EVENTS T/O THE NIGHT. THE PT SLEPT ON AND OFF. NG TUBE REMAINS PATENT, DRAINING BILLIOUS GREEN FLUID. TRIALED CLAMPING NG TUBE FOR PO SEROQUIL, PT REPORTED INCREASED NAUSEA. THIS RESOLVED WHEN SUCTINO WAS REAPPLIED AND NAUSEA MEDICATION GIVEN. BIRD REMAINS PATENT, DRAINING ORANGE TINGED URINE. NO BOWEL FUNCTION NOTED, PT HAS NOT PASSED ANY GAS OR BM'S. PAIN WAS WELL MANAGED WITH DILAUDID MEN'S BASKETBALL COACH. PLAN OF CARE IS TO CONTINUE IV ABX AND AWAIT BOWEL FUNCTION TO RETURN. THE PATIENT IS CURRENTLY RESETING IN BED, CALL LIGHT IN REACH.
[2021-12-20 05:00] LABS: Bun/Creatinine Ratio 19.2 (12.0-20.0); Calcium, Blood 7.6 mg/dL (8.5-10.1); Creatinine, Blood 0.84 mg/dL (0.60-1.20); Magnesium, Blood 2.3 mg/dL (1.6-2.4); Potassium, Blood 3.4 mmol/L (3.5-5.5)
[2021-12-20 14:28] LABS: Hematocrit 29.5 % (37.0-53.0); Hemoglobin 10.3 g/dL (13.5-17.5)
--- NOTE | 2021-12-20 15:57 | NUR ---
SHIFT SUMMARY: POD 2 LAP EMMY PATIENT IS A&OX4. VS ARE WNL AND IS ON RA. PAIN IS MANAGED WITH IV CYTOLOGIST DILAUDID. HIS MIDLINE WITH PARI IS C/D/I WITH ONE BANDAID FROM A LAP SITE THAT IS ALSO C/D/I. NG TUBE STILL HAS DARK BROWN/GREEN FLUID FOR OUTPUT AND IS ON INTERMITTENT SUCTION. HE IS TOLERATING HIS ICE CHIPS. HE IS VOIDING A VERY SMALL AMOUNT IN HIS URNAL. HE IS A SBA WITH HIS IV POLE. CALLS APPROPRIATELY. CALL LIGHT WITHIN REACH. THE PLAN IS TO CONTINUE IV ABX AND GIVE IV HALDOL TONIGHT. MAINTAIN NG TUBE UNTIL BOWEL FUNCTION CONTINUES.
--- NOTE | 2021-12-21 03:40 | NUR ---
NG TUBE PHOENIX DOBBINS WALKED INTO PT ROOM AND FOUND NG TUBE OUT OF HIS NOSE, HE REPORTS THAT "IT JUST FELL OUT". BEFORE THIS TIME NG TUBE WAS SECURE WITH TAPE AND PINNED TO GOWN. TUBE MAY HAVE BEEN INTENTIONALLY PULLED BY PT. PT STILL HAS QUITE A BIT OF OUTPUT COMING FROM TUBE, AND WILL PROBABLY NEED TO HAVE ANOTHER NG TUBE PLACED IF PT IS AGREEABLE.
[2021-12-21 04:46] LABS: Albumin, Blood 2.7 g/dL (3.4-5.0); Anion Gap 6 mmol/L (6-16); Blood Urea Nitrogen 10 mg/dL (8-24); Bun/Creatinine Ratio 13.7 (12.0-20.0); CO2, Blood 30 mmol/L (21-32); Calcium, Blood 8.4 mg/dL (8.5-10.1); Chloride, Blood 102 mmol/L (98-108); Creatinine, Blood 0.73 mg/dL (0.60-1.20); Glomerular Filtration Rate 112 (60-); Glucose, Blood 94 mg/dL (70-99); Phosphorus, Blood 1.7 mg/dL (2.5-4.9); Potassium, Blood 3.4 mmol/L (3.5-5.5); Sodium, Blood 138 mmol/L (136-145)
--- NOTE | 2021-12-21 05:08 | NUR ---
SHIFT SUMMARY PT HAS SLEPT OFF AND ON T/O THE SHIFT. NG TUBE IN PLACE HE STILL HAS QUITE A BIT OF DARK GREEN OUTPUT. CANNISTER CHANGED THIS SHIFT AND IT IS ALMOST FILLED UP TO THE [facility]. PT PULLED NG TUBE THIS AM, NEW NG TUBE PLACED, X-RAY ORDERED THIS AM TO CONFIRM PLACEMENT. GI ASSESSMENT REMAINS UNCHAGED OTHERWISE. VITALS ARE STABLE. MOTORCYCLE DELIVERY DRIVER IN PLACE FOR PAIN CONTROL AND IS MANAGING HIS PAIN WELL. IV ANTIBITOICS CONTINUED. BED IN LOWEST POSITION, CALL LIGHT WITHIN REACH.
--- NOTE | 2021-12-21 10:43 | NUR ---
MIDLINE PARI DRESSING NOTED SATURATED WITH SEROUS-LIGHT BROWN DRAINAGE, NEW PARI DRESSING APPLIED, 2 SMALL BLISTERS NOTED ON UMBILICAL AREA AROUND KOR[place], NO REDNESS NOTED.
--- NOTE | 2021-12-21 17:18 | NUR ---
SHIFT SUMMARY PT A/O X4; PLEASANT AND COOPERATIVE WITH CARE. NG TUBE HAVING LARGE AMOUNTS OF OUTPUT. ABD IS VERY FIRM AND DISTENDED. PT REPORTS PASSING SOME GAS BUT NO BOWEL MOVEMENT YET. SBA TO AMBULATE AND USING URINAL IND. VSS.
--- NOTE | 2021-12-22 03:21 | NUR ---
NG TUBE ENTERED ROOM AROUND 0300 TO ADDRESS IV ALARM, PT ALSO STATED HIS NG TUBE HAD "FALLEN OUT WHILE HE WAS SLEEPING". GATHERED MATERIALS TO REINSERT THE NG BUT PT STATED HE FELT BETTER NOT HAVING IT IN AND REFUSED TO HAVE TO REINSERTED.
[2021-12-22 04:10] LABS: Hematocrit 30.4 % (37.0-53.0); Hemoglobin 10.8 g/dL (13.5-17.5); Mean Corpuscular HGB 30.9 pg (26.0-34.0); Mean Corpuscular HGB Conc 35.5 g/dL (31.5-36.5); Mean Corpuscular Volume 87 fL (80-100); Mean Platelet Volume 9.5 fL (9.1-12.4); Platelet Count 228 K/mm3 (150-400); RDW Coefficient Variation 12.7 % (11.7-14.2); RDW Standard Deviation 40.2 fL (35.1-46.3); White Blood Cell Count 6.71 K/mm3 (4.00-11.30)
[2021-12-22 04:29] LABS: Albumin, Blood 2.9 g/dL (3.4-5.0); Anion Gap 7 mmol/L (6-16); Blood Urea Nitrogen 8 mg/dL (8-24); Bun/Creatinine Ratio 11.2 (12.0-20.0); CO2, Blood 27 mmol/L (21-32); Calcium, Blood 8.2 mg/dL (8.5-10.1); Chloride, Blood 103 mmol/L (98-108); Creatinine, Blood 0.71 mg/dL (0.60-1.20); Glomerular Filtration Rate 112 (60-); Glucose, Blood 125 mg/dL (70-99); Magnesium, Blood 2.1 mg/dL (1.6-2.4); Phosphorus, Blood 1.7 mg/dL (2.5-4.9); Potassium, Blood 3.3 mmol/L (3.5-5.5); Sodium, Blood 137 mmol/L (136-145)
--- NOTE | 2021-12-22 05:06 | NUR ---
SHIFT SUMMARY PT A&OX4, AND COOPERATIVE. MEDICATING FOR PAIN PER EMAR. INDEPENDENT TO BATHROOM. TOLERATING SIPS/CHIPS WELL. NG TUBE WAS STILL PUTTING OUT A GOOD AMOUNT OF FLUID, CHANGED COLLECTION CONTAINER 0030 WITH 1000ML BROWN/GREEN. NG TUBE WAS DISLODGED SOMETIME BETWEEN [id number] PER THE PT SELF REPORT; STATED HE DID NOT WANT IT REINSERTED. PT REPORTS HE CONTINUES TO PASS GAS, BUT NO BM YET. PARI DRESSING SHOWED LIGHT EXUDATE TOWARDS COLLECTION END. CALL LIGHT WITHIN REACH.
--- NOTE | 2021-12-22 16:35 | NUR ---
SHIFT SUMMARY PT'S NG TUBE REMOVED AND HE IS TOLERATING A FULL LIQUID DIET. ABD REMAINS DISTENDED BUT NO NAUSEA OR VOMITTING. TREATED FOR ABD PAIN PER EMR. PARI DRESSING CHANGED TO OTILIA RICHARDS. PT IND TO THE BATHROOM AND WAS ABLE TO HAVE A BM THIS SHIFT. VSS. WILL POSSIBLY DC TOMORROW.
--- NOTE | 2021-12-23 05:25 | NUR ---
SHIFT SUMMARY PT ALERT AND ORIENTED X 4. HR STABLE, TELE REMOVED PER ORDER. BP STABLE. OXYGEN SATURATION MAINTAINED ABOVE 95%. NO CP OR PRESSURE. PT IND IN ROOM. CALL LIGHT WITHIN REACH. DRESSING ON ABD C/D/I. PT MEDICATED PER PAIN AT BEGINNING OF SHIFT, SEE EMAR. PT SLEPT T/O SHIFT. WILL CONT TO MONITOR UNTIL REPORT GIVEN TO DAYSHIANT RN.
--- NOTE | 2021-12-23 13:47 | NUR ---
DISCHARGE PT [id number], IND IN ROOM. TOLERATING PO WELL, DENIES NAUSEA OR VOMITING. PAIN WELL CONTROLLED PER EMAR. DRESSING CHANGED PRIOR TO DISCHARGE. PT DENIED FURTHER QUESTIONS, ALL INSTRUCTIONS GONE OVER WITH PATIENT. POWERGLIDE REMOVED CDI.
== END 2021-12-23 13:53 | disposition home or self-care (01) | DRG 337 ==
LOC: ER 11:52 → SURS 11:53
PROVIDERS: Emergency Medicine; Physician Assistant; Student in an Organized Health Care Education/Training Program; Surgery; ADMIT Surgery
PROC: 0DNB0ZZ Release Ileum, Open Approach (ICD-10-PCS; 2021-12-18)
PROC: 0DTJ0ZZ Resection of Appendix, Open Approach (ICD-10-PCS; principal; 2021-12-18 10:00)
PROC: 0WJG4ZZ Inspection of Peritoneal Cavity, Percutaneous Endoscopic Approach (ICD-10-PCS; 2021-12-18 10:00)
DX: K35.33 Acute appendicitis with perforation, localized peritonitis, and gangrene, with abscess (principal); N40.0 Benign prostatic hyperplasia without lower urinary tract symptoms; K21.9 Gastro-esophageal reflux disease without esophagitis; J45.909 Unspecified asthma, uncomplicated; F41.9 Anxiety disorder, unspecified; B18.2 Chronic viral hepatitis C; I10 Essential (primary) hypertension; Z90.49 Acquired absence of other specified parts of digestive tract; Z98.890 Other specified postprocedural states; Z87.891 Personal history of nicotine dependence; Z79.899 Other long term (current) drug therapy; Z20.822 Contact with and (suspected) exposure to COVID-19; R33.8 Other retention of urine; E83.39 Other disorders of phosphorus metabolism; K66.0 Peritoneal adhesions (postprocedural) (postinfection)
CPT/HCPCS: 0241U; 36415; 51702; 71045; 74018; 74177; 80048; 80053; 80069; 81003; 83605; 83690; 83735; 84100; 85014; 85018; 85025; 85027; 87040; 88304; 94640; 94664; 94760; 96365-59; 96375; 96376; 97161; 97165; 97530; 99285-25; A9270; C1751; C9113; G0378; J0694; J1100; J1170; J1630; J1650; J1885; J2250; J2270; J2370; J2405; J2543; J2704; J2795; J3010; J3475; J7030; J7060; J7120; Q9967

== ENCOUNTER 2022-03-28 06:08 | Day surgery (SDC) | payer OTHER ==
[~2022-03-28] VITALS: Ht 180.3 cm; Wt 103.9 kg
[~2022-03-28 06:08] MED LIST changes: +GABA300 PO; +MONT10T PO
[2022-03-28] MEDS ORDERED: TIOT18 (06:49)
--- NOTE | 2022-03-28 14:14 | NUR ---
03/28/22 [id number] Jessica Barger 1205: REPORT GIVEN TO ANOTHER RN, LESTER, TO FINISH RECOVERY. PATIENT STATES PAIN IS TOLERABLE. OXYGEN SATURATION 94% ON ROOM AIR.
== END 2022-03-28 12:36 | disposition home or self-care (01) ==
LOC: ORSCSDS 06:08
PROVIDERS: Otolaryngology
PROC: 099W4ZZ Drainage of Right Sphenoid Sinus, Percutaneous Endoscopic Approach (ICD-10-PCS; principal; 2022-03-28 07:30)
PROC: 099S4ZZ Drainage of Right Frontal Sinus, Percutaneous Endoscopic Approach (ICD-10-PCS; principal; 2022-03-28 07:30)
PROC: 099V4ZZ Drainage of Left Ethmoid Sinus, Percutaneous Endoscopic Approach (ICD-10-PCS; principal; 2022-03-28 07:30)
PROC: 099Q4ZZ Drainage of Right Maxillary Sinus, Percutaneous Endoscopic Approach (ICD-10-PCS; principal; 2022-03-28 07:30)
PROC: 099R4ZZ Drainage of Left Maxillary Sinus, Percutaneous Endoscopic Approach (ICD-10-PCS; principal; 2022-03-28 07:30)
PROC: 099X4ZZ Drainage of Left Sphenoid Sinus, Percutaneous Endoscopic Approach (ICD-10-PCS; principal; 2022-03-28 07:30)
PROC: 099U4ZZ Drainage of Right Ethmoid Sinus, Percutaneous Endoscopic Approach (ICD-10-PCS; principal; 2022-03-28 07:30)
PROC: 099T4ZZ Drainage of Left Frontal Sinus, Percutaneous Endoscopic Approach (ICD-10-PCS; principal; 2022-03-28 07:30)
DX: J32.8 Other chronic sinusitis (principal); I10 Essential (primary) hypertension; K21.9 Gastro-esophageal reflux disease without esophagitis; Z87.891 Personal history of nicotine dependence; B19.20 Unspecified viral hepatitis C without hepatic coma; J45.909 Unspecified asthma, uncomplicated; F20.9 Schizophrenia, unspecified; Z79.899 Other long term (current) drug therapy
CPT/HCPCS: A9270; C2625; J0171; J1100; J1885; J2250; J2405; J2704; J3010; J7120

== ENCOUNTER 2024-02-27 09:41 | Emergency (ER) | payer OTHER ==
[~2024-02-27] VITALS: Ht 180.3 cm; Wt 95.2 kg
[~2024-02-27 09:41] MED LIST changes: +TIOT18
[2024-02-27 11:04] LABS: BASOPHILS ABSOLUTE AUTO 0.04 K/mm3 (0.00-0.23); BASOPHILS PERCENT AUTO 1 % (0-2); EOSINOPHILS ABSOLUTE AUTO 0.13 K/mm3 (0.00-0.68); EOSINOPHILS PERCENT AUTO 2 % (0-6); Hematocrit 48.1 % (37.0-53.0); IMMATURE GRAN ABSOLUTE AUTO 0.01 K/mm3 (0.00-0.10); IMMATURE GRAN PERCENT AUTO 0 % (0-1); LYMPHOCYTES PERCENT AUTO 19 % (21-46); MONOCYTES ABSOLUTE AUTO 0.73 K/mm3 (0.16-1.47); MONOCYTES PERCENT AUTO 11 % (4-13); Mean Corpuscular HGB Conc 35.3 g/dL (31.5-36.5); Mean Corpuscular Volume 88 fL (80-100); Mean Platelet Volume 10.6 fL (9.1-12.4); NEUTROPHILS PERCENT AUTO 67 % (41-73); Platelet Count 203 K/mm3 (150-400); RDW Coefficient Variation 12.8 % (11.7-14.2); RDW Standard Deviation 41.1 fL (35.1-46.3); Red Blood Cell Count 5.48 M/mm3 (4.30-5.90); White Blood Cell Count 6.41 K/mm3 (4.00-11.30)
[2024-02-27 11:24] LABS: Albumin, Blood 3.9 g/dL (3.4-5.0); Albumin/Globulin Ratio 1.1 (0.8-1.8); Bilirubin, Total 0.5 mg/dL (0.1-1.0); Bun/Creatinine Ratio 22.5 (12.0-20.0); Calcium, Blood 9.4 mg/dL (8.5-10.1); Creatinine, Blood 1.38 mg/dL (0.60-1.20); Globulin, Blood 3.4 g/dL (2.2-4.0); Potassium, Blood 4.8 mmol/L (3.5-5.5); Total Protein, Blood 7.3 g/dL (6.4-8.2)
[2024-02-27] MEDS ORDERED: ATROVENT HFA12.9 GM (13:00)
[2024-02-27] MEDS ORDERED: LOPERAMIDE212 PO (13:01)
[2024-02-27] MEDS ORDERED: OMEP20ER (13:01)
[2024-02-27] MEDS ORDERED: Oxybutynin Chlo10 MG (13:03)
[2024-02-27] MEDS ORDERED: PRAZ5 PO (13:03)
[2024-02-27] MEDS ORDERED: DICLOFENAC MIS (13:03)
[2024-02-27] MEDS ORDERED: METO100ER PO (13:03)
[2024-02-27 14:11] LABS: Source, Urine Condom Cath
[2024-02-27 14:12] VITALS: BP 125/77
[2024-02-27 14:15] LABS: Appearance, Urine Clear (Clear); Bilirubin, Urine Neg (Neg); Blood, Urine Neg (Neg); Color, Urine Yellow (P-Yellow); Glucose Qualitative, Urine Neg (Neg); Ketones, Urine Neg (Neg); Leukocyte Esterase, Urine Neg (Neg); Nitrite, Urine Neg (Neg); Protein, Urine Neg (Neg); Urobilinogen, Urine NORM (Normal)
== END 2024-02-27 14:18 | disposition home or self-care (01) ==
LOC: ER 09:41
PROVIDERS: Physician Assistant
DX: K62.5 Hemorrhage of anus and rectum (principal); F17.210 Nicotine dependence, cigarettes, uncomplicated
CPT/HCPCS: 80053; 81003; 82272; 85025; 99284

== ENCOUNTER → 2024-04-10 | Outpatient (CLI) | payer OTHER ==
[~2024-04-10] MED LIST changes: +ATROVENT HFA12.9 GM; +DICLOFENAC MIS; +LOPERAMIDE212 PO; +METO100ER PO; +OMEP20ER; +Oxybutynin Chlo10 MG; +PRAZ5 PO
[2024-04-14 20:23] LABS: CALPROTECTIN,FECAL 49 ug/g (<=49)
== END | disposition home or self-care (01) ==
LOC: LAB SHORT 09:00 → LAB 09:00
PROVIDERS: Physician Assistant Medical
DX: R19.7 Diarrhea, unspecified (principal)
CPT/HCPCS: 83993

== ENCOUNTER 2024-07-13 09:33 | Day surgery (SDC) | payer OTHER ==
[~2024-07-13] VITALS: Ht 180.3 cm; Wt 92.2 kg
[~2024-07-13 09:33] MED LIST changes: +Lactated Ringer's 1,000 ML IV ONE; +propofoL 50 ML IV ONE
[2024-07-13] MEDS ORDERED: Lactated Ringer's 1,000 ML IV ONE (10:21)
[2024-07-13] MEDS ORDERED: Midazolam HCL 1 MG/ML 5MLVIAL ONE (11:18)
[2024-07-13 13:01] VITALS: BP 113/73
== END 2024-07-13 12:45 | disposition home or self-care (01) ==
LOC: ORSCSDS 09:33
PROVIDERS: Internal Medicine Gastroenterology
PROC: 0DJD8ZZ Inspection of Lower Intestinal Tract, Via Natural or Artificial Opening Endoscopic (ICD-10-PCS; principal; 2024-07-13 11:00)
PROC: 0DB58ZX Excision of Esophagus, Via Natural or Artificial Opening Endoscopic, Diagnostic (ICD-10-PCS; principal; 2024-07-13 11:00)
DX: K92.1 Melena (principal); R19.7 Diarrhea, unspecified; K21.00 Gastro-esophageal reflux disease with esophagitis, without bleeding; K22.70 Barrett's esophagus without dysplasia; I10 Essential (primary) hypertension; R00.0 Tachycardia, unspecified; B19.20 Unspecified viral hepatitis C without hepatic coma; J44.9 Chronic obstructive pulmonary disease, unspecified; Z87.891 Personal history of nicotine dependence; Z79.899 Other long term (current) drug therapy
CPT/HCPCS: 88305; J2250; J2704; J7120